=== PATIENT | female | born 1985 | race Caucasian/White ===

== ENCOUNTER 2018-01-03 14:14 | Emergency (ER) | payer OTHER ==
[~2018-01-03] VITALS: Ht 175.3 cm; Wt 92.4 kg
[~2018-01-03 14:14] MED LIST: ESTRADIOL2 MG PO; PEN-VEE K,VEET500 MG PO; SPIRONOLACTONE100 MG PO; TAMIFLU75 MG PO
[2018-01-03] MEDS ORDERED: GABAPENTIN300 MG PO (14:33)
[2018-01-03 15:36] LABS: SOURCE URINE
[2018-01-03 16:15] VITALS: BP 133/84
[2018-01-04 12:03] LABS: HIV-1/2 AB/AG COMBO REACTIVE
[2018-01-04 12:44] LABS: CHLAMYDIA TRACHOMATIS NEGATIVE; NEISSERIA GONORRHOEAE NEGATIVE
[2018-01-05 13:35] LABS: HIV 1 Antibody Positive (Negative); HIV 2 Antibody Negative (Negative)
== END 2018-01-03 16:15 | disposition home or self-care (01) ==
LOC: EME 14:14
PROVIDERS: Nurse Practitioner Family
DX: K62.5 Hemorrhage of anus and rectum (principal); Z20.2 Contact with and (suspected) exposure to infections with a predominantly sexual mode of transmission; Z21 Asymptomatic human immunodeficiency virus [HIV] infection status
CPT/HCPCS: 86701 90; 86702 90; 86705; 86803; 87340; 87389; 87491; 87591; 99281; 99285

== ENCOUNTER 2018-01-11 06:21 | Emergency (ER) | payer OTHER ==
[~2018-01-11] VITALS: Ht 175.3 cm; Wt 90.9 kg
[~2018-01-11 06:21] MED LIST changes: +GABAPENTIN300 MG PO
[2018-01-11 06:54] LABS: HEMATOCRIT 37.3 % (36.0-46.0); HEMOGLOBIN 13.5 G/DL (11.9-15.5); MCH 31.3 PG (29.0-34.0); MCHC 36.2 G/DL (30.0-36.0); MCV 86.5 FL (83-99); PLATELET COUNT 218 K/uL (156-360); RBC DIS.WIDTH-CV 12.3 % (11.8-14.6); RBC DIS.WIDTH-SD 38.8 % (39-53); RED BLOOD COUNT 4.31 M/uL (3.80-5.20); WHITE BLOOD COUNT 6.9 K/uL (4.1-10.2)
[2018-01-11 07:23] LABS: ALBUMIN 4.3 G/DL (3.2-4.8); CHLORIDE 102 MEQ/L (99-109); POTASSIUM 4.1 MEQ/L (3.7-5.4); SODIUM 136 MEQ/L (136-147); TOTAL BILIRUBIN 0.4 MG/DL (0.0-1.0)
[2018-01-11 07:29] LABS: ALKALINE PHOSPHATASE 52 IU/L (3-129); ALT (GPT) 39 IU/L (3-49); AST (GOT) 21 IU/L (2-34); GFR ESTIMATE (CALCULATED) > 59 mL/min/; GLUCOSE 111 mg/dL (70-99); LIPASE 18 U/L (1.0-51.0); TOTAL PROTEIN 7.9 G/DL (6.4-8.3); UREA NITROGEN (BUN) 11 mg/dL (9-23)
[2018-01-11 07:33] LABS: QUANTITATIVE HCG < 4.0 MIU/ML
[2018-01-11 07:44] LABS: APPEARANCE CLOUDY ((CLEAR)); BILIRUBIN NEGATIVE; BLOOD LARGE; COLOR YELLOW ((YELLOW)); GLUCOSE (STRIP) NEGATIVE; KETONES 5; LEUKOCYTES LARGE; NITRITE POSITIVE; PROTEIN (STRIP) 100; SPECIFIC GRAVITY 1.023 (1.000-1.030); UROBILINOGEN 0.2 MG/DL (0.2-1.0)
[2018-01-11] MEDS ORDERED: TIVICAY50 MG PO (07:49)
[2018-01-11] MEDS ORDERED: DESCOVY 200-251 EACH PO (07:49)
[2018-01-11 08:00] LABS: WHITE BLOOD CELLS 40-50 /HPF (0-5)
[2018-01-11 08:01] LABS: BACTERIA 1+ /HPF; EPITHELIAL CELLS 1+ /HPF; MUCUS 1+ /LPF; UCUL ADDED? YES
[2018-01-11] MEDS ORDERED: CIPRO500 MG PO (09:17)
[2018-01-11] MEDS ORDERED: PERCOCET 5/31 TABLET PO (09:18)
[2018-01-11 09:46] VITALS: BP 111/66
== END 2018-01-11 09:57 | disposition home or self-care (01) ==
LOC: EME 06:21
DX: N39.0 Urinary tract infection, site not specified (principal); K76.0 Fatty (change of) liver, not elsewhere classified; K42.9 Umbilical hernia without obstruction or gangrene; B20 Human immunodeficiency virus [HIV] disease; F17.200 Nicotine dependence, unspecified, uncomplicated
CPT/HCPCS: 74177; 80053; 81003; 83690; 84702; 85027; 87077; 87086; 87186; 99281; 99285; J2270; J7030